=== PATIENT | male | born 1940 | race Caucasian/White ===

== ENCOUNTER 2020-05-05 05:47 | Day surgery (SDC) | payer OTHER ==
[2020-05-02 13:47] LABS: BASOPHILS % (AUTO) 0.7 % (0.0-5.0); HEMATOCRIT 43.5 % (42-54); LYMPHOCYTES % (AUTO) 19.9 % (21.0-51.0); MEAN CORPUSCULAR HEMOGLOBIN 31.7 pg (27.0-33.0); MEAN CORPUSCULAR HGB CONC 33.8 g/dL (32.0-36.0); MONOCYTES % (AUTO) 12.7 % (3.0-13.0); PLATELET COUNT (AUTO) 192 K/uL (130-400); RED BLOOD CELL COUNT(AUTO) 4.63 MIL/uL (4.50-6.20); RED CELL DISTRIBUTION WIDTH 14.3 % (11.0-15.5); WHITE BLOOD COUNT (AUTO) 6.8 K/uL (4.8-10.8)
[2020-05-02 13:56] LABS: CREATININE 1.5 mg/dL (0.5-1.5); POTASSIUM 4.3 mmol/L (3.5-5.1)
[2020-05-02 13:57] LABS: INR 1.29 (0.85-1.15); PARTIAL THROMBOPLASTIN TIME 38.1 SEC (26.3-35.5); PROTHROMBIN TIME 13.8 SEC (9.6-11.6)
[2020-05-02 13:58] LABS: APPEARANCE,URINE Cloudy (CLEAR); BILIRUBIN,URINE Negative (NEGATIVE); COLOR,URINE Yellow (YELLOW); GLUCOSE, URINE (UA) Negative (NEGATIVE); KETONES,URINE Negative (NEGATIVE); LEUKOCYTE ESTERASE ,URINE Moderate (NEGATIVE); NITRATE,URINE Negative (NEGATIVE); OCCULT BLOOD,URINE Moderate (NEGATIVE); PROTEIN,URINE Trace mg/dL (NEGATIVE)
[2020-05-02 14:10] LABS: BACTERIA,URINE Many /HPF (None Seen); SQUAMOUS EPITHELIAL CELL,UR 0-2 /HPF (0-2); WBC,URINE 26-50 /HPF (0-1)
--- NOTE | 2020-05-04 14:20 | NUR ---
Reported to Doctor Kev urine leukest moderate ,wbc 26-50, bact manyand urine culture of >10,000, no new order for urine patient should follow up with primary doctor after procedure and he was afebrile. I also reported laminator of 1.5 and new orders to start ns at 100ml/hr upon arrival.
--- NOTE | 2020-05-04 14:31 | NUR ---
Doctor Kev aware of inr of 1.29 , no new orders.
[2020-05-05] VITALS (10 sets, daily range): BP systolic 94–128; BP diastolic 44–71
[~2020-05-05] VITALS: Ht 188 cm; Wt 122.0 kg
[~2020-05-05 05:47] MED LIST: CALC-866 PO; CILO50TA PO; ESOM40CA PO; EZET10TA48 PO; FURO80TA3 PO; GLUCOSAMINE PO; METO50TA18 PO; POTA20TA82 PO; RIVA20TA PO; SERT100T12 PO; [UNRECOGNIZED DRUG - CODE] PO
[2020-05-05] MEDS ORDERED: SODIUM CHLORIDE 0.9% 1000ML 1,000 ML IV SCH (06:00)
--- NOTE | 2020-05-05 06:15 | NUR ---
PROCEDURE PT HERE FOR PROCEDURE. DENIES PAIN AT THIS TIME. PT HAS UROSTOMY BAG.
[2020-05-05] MEDS ORDERED: MIDAZOLAM HCL 1 MG/ML 2ML VIAL ONE (07:25)
[2020-05-05] MEDS ORDERED: HEPARIN SODIUM 1000UNIT/ML 10ML VIAL ONE (07:25)
[2020-05-05] MEDS ORDERED: IODIXANOL 320 MG/ML 100 ML VIAL ONE (07:25)
[2020-05-05] MEDS ORDERED: NITROGLYCERIN 2 MG/VIAL VIAL IV ONE (07:25)
--- NOTE | 2020-05-05 07:25 | NUR ---
PROCEDURE PT TAKEN TO PROCEDURE VIA HAIR COLORIST STAFF SALTY MEDNEZ
[2020-05-05] MEDS ORDERED: LIDOCAINE HCL 2% 20ML ONE (07:26)
[2020-05-05] MEDS ORDERED: FENTANYL CITRATE PF 50 MCG/1 ML 2ML VIAL ONE (07:26)
[2020-05-05] MEDS ORDERED: NICARDIPINE HCL 25 MG/10 ML ML IV ONE (07:49)
--- NOTE | 2020-05-05 09:10 | NUR ---
PROCEDURE PT BACK FROM PROCEDURE. MYNX TO RIGHT GROIN. SOFT TO TOUCH. NO BLEEDING, OOZING NOTED. INSTRUCTED ON IMPORTANCE OF NOT MOVING RIGHT LEG OR LIFTING HEAD UP OFF OF BED. POT VERBALIZED UNDERSTANDING.
--- NOTE | 2020-05-05 10:46 | NUR ---
DISCHARGE DISCHARGE INSTRUCTIONS GIVEN TO DAUGHTER ERMA OVER TELEPHONE. INSTRUCTED ON NEW PRESCRIPTION GIVEN AND WILL SEND WITH PT. NO OTHER QUESTIONS AT THIS TIME.
== END 2020-05-05 13:10 | disposition home or self-care (01) ==
LOC: DAH 05:47
PROVIDERS: ATTEND Internal Medicine Cardiovascular Disease
DX: I70.203 Unspecified atherosclerosis of native arteries of extremities, bilateral legs (principal); I12.9 Hypertensive chronic kidney disease with stage 1 through stage 4 chronic kidney disease, or unspecified chronic kidney disease; N18.30 Chronic kidney disease, stage 3 unspecified; I48.19 Other persistent atrial fibrillation; M10.9 Gout, unspecified; I25.10 Atherosclerotic heart disease of native coronary artery without angina pectoris; Z79.01 Long term (current) use of anticoagulants; Z79.899 Other long term (current) drug therapy; Z95.5 Presence of coronary angioplasty implant and graft
CPT/HCPCS: 36246; 36415; 71045; 75716; 80048; 81001; 85025; 85610; 85730; 87077; 87088; 87186; 93005; A4215; A4216; A4221; A4222; A4223 ×3; A4606; A4663; C1760; C1769; C1894 ×2; J1644; J2250; J3010; J3490 ×3; J7030; Q9967; 75625; 99156; 99157

== ENCOUNTER → 2022-08-05 | Outpatient (CLI) | payer OTHER ==
[~2022-08-05] MED LIST changes: -CILO50TA PO; +CILO50TA2 PO; +POTA-202 PO; -POTA20TA82 PO; +SERT-440 PO; -SERT100T12 PO
== END | disposition home or self-care (01) ==
LOC: SHCH 09:07
PROVIDERS: ATTEND Internal Medicine Cardiovascular Disease
DX: I87.2 Venous insufficiency (chronic) (peripheral) (principal); Z98.890 Other specified postprocedural states
CPT/HCPCS: 93971

== ENCOUNTER → 2022-08-12 | Outpatient (CLI) | payer OTHER | END | disposition home or self-care (01) | LOC: SHCH 12:56 | PROVIDERS: ATTEND Internal Medicine Cardiovascular Disease | DX: I87.2 Venous insufficiency (chronic) (peripheral) (principal); I82.812 Embolism and thrombosis of superficial veins of left lower extremity; Z98.890 Other specified postprocedural states | CPT/HCPCS: 93971 ==

== ENCOUNTER → 2022-09-09 | Outpatient (CLI) | payer OTHER | END | disposition home or self-care (01) | LOC: SHCH 08:10 | PROVIDERS: ATTEND Internal Medicine Cardiovascular Disease | DX: I87.2 Venous insufficiency (chronic) (peripheral) (principal); I82.811 Embolism and thrombosis of superficial veins of right lower extremity; Z98.890 Other specified postprocedural states | CPT/HCPCS: 93971 ==

== ENCOUNTER → 2022-09-23 | Outpatient (CLI) | payer OTHER | END | disposition home or self-care (01) | LOC: SHCH 08:22 | PROVIDERS: ATTEND Internal Medicine Cardiovascular Disease | DX: I87.2 Venous insufficiency (chronic) (peripheral) (principal); Z98.890 Other specified postprocedural states | CPT/HCPCS: 93971 ==